=== PATIENT | female | born 1960 | race Two or more races ===

== ENCOUNTER → 2017-01-04 | Outpatient (CLI) | payer OTHER ==
--- NOTE | 2017-01-04 09:39 | RAD ---
CT of the chest without contrast, 01/04/2017: History: Lung nodule Noncontrast scans were obtained as requested. Comparison is made to a study from 06/09/2016. Several small perifissural nodules are noted along the oblique fissures as seen on the left on image 140 of series #3 and on the right on images 154 and 165 of series #3. This appearance is typically due to benign intrapulmonary lymph nodes or blood vessels. Allowing for technical differences these appear to be unchanged. There are unchanged bilateral apical pleural-parenchymal opacities, probably due to scarring. A 5 mm adjacent subpleural nodule seen posteriorly in the right upper lobe on image 48 of series #3 is unchanged and probably represents a scar. A calcified granuloma is present in the right base. No new pulmonary opacities are seen. The thoracic aorta is of normal caliber. No mediastinal adenopathy is seen. There is no evidence of pleural fluid. IMPRESSION: 1. Bilateral pleural-parenchymal scarring. 2. Stable CT chest exam. PQRS Compliance Statement: One or more of the following individualized dose reduction techniques were utilized for this examination: 1. Automated exposure control 2. Adjustment of the mA and/or kV according to patient size 3. Use of iterative reconstruction technique
== END | disposition home or self-care (01) ==
LOC: CT 08:09
PROVIDERS: ATTEND Internal Medicine Critical Care Medicine
DX: J98.4 Other disorders of lung (principal); R91.8 Other nonspecific abnormal finding of lung field; R91.1 Solitary pulmonary nodule
CPT/HCPCS: 71250

== ENCOUNTER → 2017-04-06 | Outpatient (CLI) | payer OTHER ==
--- NOTE | 2017-04-07 14:58 | SLEEP ---
DATE OF STUDY: 04/06/2017 DATE OF STUDY: 04/06/2017 ATTENDING PHYSICIAN: . REFERRING PHYSICIAN: Skyler Wood MD The patient is 56 years old who weighs 156 pounds with a BMI of 27. The patient had a previous sleep study which showed mild DIAMOND. The patient returned for CPAP titration study. The patient's [place] score was 12. During the night study, the patient spent 421 minutes in bed and slept for 339 minutes with a sleep efficiency of 80%. Sleep latency was 67 minutes with a REM latency of 201 minutes. Overall, sleep architecture showed increased stage I sleep, normal stage II sleep, normal slow wave and reduced REM sleep. EKG monitoring revealed normal sinus rhythm, average heart rate of 72 beats per minute. No arrhythmias were observed. PLMS were not seen. The patient was started on CPAP at 5 cm water and titrated up to 9 cm water. Best results were seen at a CPAP pressure of 7 cm water. At that pressure, the patient had 103 minutes of sleep. The patient had supine sleep as well as REM sleep. The patient's AHI was reduced to only 1 per hour and oxygen saturation remained above 95%. The patient used small sized nasal pillows. IMPRESSION: 1. Sleep apnea diagnosed by previous sleep study. 2. No clinically significant periodic limb movements of sleep. RECOMMENDATIONS: 1. CPAP at 7 cm water should be used on a nightly basis. It completely eliminated the patient's sleep apnea. 2. Follow up in 4-6 weeks to assess compliance with CPAP and to document clinical improvement. 3. Avoid [employer] depressants. 4. Caution regarding driving until symptoms of sleep apnea resolve with the use of CPAP. SKYLER WOOD MD DR: KAMLESH/clotilde JOB#: [id number] / [id number]
== END | disposition home or self-care (01) ==
LOC: RT 20:11
PROVIDERS: ATTEND Internal Medicine Critical Care Medicine
DX: G47.33 Obstructive sleep apnea (adult) (pediatric) (principal)
CPT/HCPCS: 95811